=== PATIENT | male | born 2000 | race Caucasian/White ===

== ENCOUNTER 2019-01-12 11:49 | Emergency (ER) | payer OTHER ==
[2019-01-12 12:31] LABS: ABSOLUTE LYMPHOCYTES (AUTO) 1.2 10^3/uL (0.5-4.7); ABSOLUTE MONOCYTES (AUTO) 0.8 10^3/uL (0.1-1.4); ABSOLUTE NEUT (AUTO) 8.2 10^3/uL (1.7-8.2); BASOPHILS % (AUTO) 0.5 % (0-2); EOSINOPHILS % (AUTO) 0.3 % (0-6); HEMATOCRIT 35.9 % (37.9-51.0); HEMOGLOBIN 12.7 g/dL (13.5-17.0); LYMPHOCYTES % (AUTO) 11.9 % (13-45); MEAN CORPUSCULAR HEMOGLOBIN 30.7 pg (27.0-33.4); MEAN CORPUSCULAR HGB CONC 35.2 g/dL (32.0-36.0); MEAN CORPUSCULAR VOLUME 87 fl (80-97); MONOCYTES % (AUTO) 7.4 % (3-13); PLATELET COUNT 254 10^3/uL (150-450); RED BLOOD COUNT 4.12 10^6/uL (4.35-5.55); RED CELL DISTRIBUTION WIDTH 12.4 % (11.5-14.0); SEGMENTED NEUTROPHILS % (AUTO) 79.9 % (42-78); TOTAL CELLS COUNTED % (AUTO) 100 %; WHITE BLOOD COUNT 10.2 10^3/uL (4.0-10.5)
[2019-01-12 12:51] LABS: ALANINE AMINOTRANSFERASE 23 U/L (21-72); ALKALINE PHOSPHATASE 54 U/L (38-126); ANION GAP 10 (5-19); ASPARTATE AMINO TRANSFERASE 19 U/L (17-59); BILIRUBIN,DIRECT 0.3 mg/dL (0.0-0.4); BILIRUBIN,TOTAL 1.1 mg/dL (0.2-1.3); BLOOD UREA NITROGEN 14 mg/dL (7-20); CALCIUM 8.8 mg/dL (8.4-10.2); CARBON DIOXIDE 25 mmol/L (22-30); CHLORIDE 104 mmol/L (98-107); CREATINE KINASE 102 U/L (55-170); GLUCOSE 91 mg/dL (75-110); SODIUM 138.6 mmol/L (137-145); TOTAL PROTEIN 6.1 g/dL (6.3-8.2)
[2019-01-12 13:03] LABS: CREATINE KINASE MB 1.95 ng/mL (<4.55)
[2019-01-12 13:04] LABS: TROPONIN I < 0.012 ng/mL
--- NOTE | 2019-01-12 14:53 | ER Document Report ---
ED General - General Chief Complaint: Near Syncope Stated Complaint: SYNCOPE Time Seen by Provider: 01/12/19 14:16 - HPI Notes: Patient is a 18-year-old male that presents to the emergency department for chief complaint of lightheadedness and near syncope. Patient states he was picking up trash along the road and began to feel very lightheaded. He reports perioral paresthesias and carpopedal spasms. He states he sat down and felt nauseated and hot. He did not vomit or completely lose consciousness. He denied any chest pain, shortness of breath or palpitations. He states he has only had 3 water bottles throughout today. He denies history of syncope or cardiac disease in the past. He denies family history of sudden cardiac . Patient has received 1500 mL's of normal saline and has had one large bottle of Gatorade and states he is feeling back to normal. Past Medical History: Negative Past Surgical History: Negative Social History: Denies drugs alcohol and tobacco use Family History: Reviewed and noncontributory for presenting illness Allergies: Reviewed, see documented allergy list. REVIEW OF SYSTEMS: CONSTITUTIONAL : No fever No chills No diaphoresis No recent illness EENT: No vision changes No congestion No sore throat CARDIOVASCULAR: No chest pain No palpitations RESPIRATORY: No shortness of breath No cough No difficulty breathing GASTROINTESTINAL: No abdominal pain nausea No vomiting No diarrhea GENITOURINARY: No dysuria No hematuria No difficulty urinating MUSCULOSKELETAL: No back pain No leg pain No arm pain SKIN: No rashes No lesions LYMPHATIC: No swollen, enlarged glands. NEUROLOGICAL: lightheadedness No headache No weakness No paresthesias PSYCHIATRIC: No anxiety No depression PHYSICAL EXAMINATION: Vital signs reviewed, nursing noted reviewed. GENERAL: Well-appearing, well-nourished and in no acute distress. HEAD: Atraumatic, normocephalic. EYES: Eyes appear normal, extraocular movements intact, sclera anicteric, conjunctiva are normal. ENT: nares patent, oropharynx clear without exudates. Moist mucous membranes. NECK: Normal range of motion, supple without lymphadenopathy LUNGS: Breath sounds clear to auscultation bilaterally and equal. No wheezes rales or rhonchi. HEART: Regular rate and rhythm without murmurs ABDOMEN: Soft, nontender, normoactive bowel sounds. No rebound, guarding, or rigidity. No masses appreciated. EXTREMITIES: Nontender, good range of motion, no pitting or edema. NEUROLOGICAL: No focal neurological deficits. Moves all extremities spontaneously Motor and sensory grossly intact on exam. PSYCH: Normal mood, normal affect. SKIN: Warm, Dry, normal turgor, no rashes or lesions noted on exposed skin - Related Data Allergies/Adverse Reactions: Penicillins Allergy (Unknown, Verified 01/12/19 12:03) Past Medical History - Social History Smoking Status: Unknown if Ever Smoked Family History: Reviewed & Not Pertinent Patient has suicidal ideation: No Patient has homicidal ideation: No Renal/ Medical History: Denies: Hx Peritoneal Dialysis Physical Exam - Vital signs Vitals: Temp Pulse Resp BP Pulse Ox 98.7 F 114 H 15 120/74 98 01/12/19 11:58 01/12/19 11:58 01/12/19 11:58 01/12/19 11:58 01/12/19 11:58 Course - Re-evaluation Re-evalutation: 01/12/19 14:52 Vitals reviewed. Nursing notes reviewed. Patient presented tachycardic to the emergency room. He received 1500 mL's of normal saline in triage and by EMS. Patient has tolerated drinking most of a large bottle of Gatorade. He has not had any emesis in the emergency room. He is otherwise alert and hemodynamically stable. Patient symptoms are consistent with heat exhaustion and dehydration. His lab work shows a slight elevation of BUN and creatinine. It was advised that he get his kidney function rechecked within the next week and increase oral intake of fluids. Patient will avoid any direct heat exposure for the next 24 hours. He was referred to primary care for follow-up. Laboratory 01/12/19 01/12/19 01/12/19 12:05 12:05 12:05 WBC 10.2 RBC 4.12 L Hgb 12.7 L Hct 35.9 L MCV 87 MCH 30.7 MCHC 35.2 RDW 12.4 Plt Count 254 Seg Neutrophils % 79.9 H Lymphocytes % 11.9 L Monocytes % 7.4 Eosinophils % 0.3 Basophils % 0.5 Absolute Neutrophils 8.2 Absolute Lymphocytes 1.2 Absolute Monocytes 0.8 Absolute Eosinophils 0.0 Absolute Basophils 0.0 Sodium 138.6 Potassium 4.0 Chloride 104 Carbon Dioxide 25 Anion Gap 10 BUN 14 Creatinine 1.30 H Est GFR ( Amer) > 60 Est GFR (Non-Af Amer) > 60 Glucose 91 Calcium 8.8 Total Bilirubin 1.1 Direct Bilirubin 0.3 Neonat Total Bilirubin Not Reportable Neonat Direct Bilirubin Not Reportable Neonat Indirect Bili Not Reportable AST 19 ALT 23 Alkaline Phosphatase 54 Creatine Kinase 102 CK-MB (CK-2) 1.95 Troponin I < 0.012 Total Protein 6.1 L Albumin 4.0 - Vital Signs Vital signs: Temp Pulse Resp BP Pulse Ox 98.7 F 114 H 15 120/74 98 01/12/19 11:58 01/12/19 11:58 01/12/19 11:58 01/12/19 11:58 01/12/19 11:58 - Laboratory Result Diagrams: 01/12/19 12:05 01/12/19 12:05 Laboratory results interpreted by me: 01/12/19 01/12/19 12:05 12:05 RBC 4.12 L Hgb 12.7 L Hct 35.9 L Seg Neutrophils % 79.9 H Lymphocytes % 11.9 L Creatinine 1.30 H Total Protein 6.1 L - EKG Interpretation by Me Additional EKG results interpreted by me: 01/12/19 14:53 Interpreted by myself 1215: Sinus tachycardia, rate 107, normal axis, no ectopy, no STEMI Discharge - Discharge Clinical Impression: Near syncope, Dehydration, DARBY (acute kidney injury) Condition: Stable Disposition: HOME, SELF-CARE Instructions: Dehydration ([facility]), Kidney Injury ([facility]), Near Syncopal Episode ([facility]) Additional Instructions: Please return to the emergency department if you have any worsening, or concern of your symptoms. Please return to the emergency department if you develop chest pain, difficulty breathing, severe abdominal pain, or ongoing vomiting. Please follow-up with your primary care physician in 2-3 days and any other recommended physicians. If prescribed, take all medications as directed. If you have any questions or concerns do not hesitate to return the emergency department for evaluation. Have your kidney function rechecked in the next week Increase the amount of fluids you are drinking Referrals: [facility] [Provider Group] - Follow up in 3-5 days
[2019-01-12 15:11] VITALS: BP 122/69
--- NOTE | 2019-01-14 00:21 | EKG REPORT ---
SEVERITY:- OTHERWISE NORMAL ECG - SINUS TACHYCARDIA : Confirmed by: Conor Yang 14-Jan-2019 00:20:59
== END 2019-01-12 15:15 | disposition home or self-care (01) ==
LOC: ER 11:49
DX: R55 Syncope and collapse (principal); N17.9 Acute kidney failure, unspecified; E86.0 Dehydration; R42 Dizziness and giddiness; R11.0 Nausea; Z88.0 Allergy status to penicillin
CPT/HCPCS: 36415; 80053; 82550; 82553; 84484; 85025; 93005; 93010; 99284